=== PATIENT | female | born 1970 ===

== ENCOUNTER 2020-03-04 08:20 | Day surgery (SDC) | payer OTHER ==
[~2020-03-04 08:20] MED LIST: DICY20TA PO; LEVOXYL150 MCG PO; PREORBOTIC CAP1 EACH PO
== END 2020-03-04 18:10 | disposition home or self-care (01) ==
LOC: CIR.AMB 08:20 → ADM 12:00 → CIR.AMB 12:00
PROVIDERS: ATTEND Colon & Rectal Surgery
DX: K64.8 Other hemorrhoids (principal); K64.4 Residual hemorrhoidal skin tags

== ENCOUNTER 2024-05-22 08:55 | Outpatient (CLI) | payer OTHER | END 2024-05-22 09:02 | disposition home or self-care (01) | LOC: RAD 08:55 | PROVIDERS: ATTEND General Practice | DX: Z12.31 Encounter for screening mammogram for malignant neoplasm of breast (principal); M19.90 Unspecified osteoarthritis, unspecified site ==